=== PATIENT | male | born 1990 | race Hispanic/Latino ===

== ENCOUNTER 2018-02-16 20:06 | Emergency (ER) | payer OTHER ==
[2018-02-16 20:31] LABS: Absolute Lymphocytes (CBC) 1.6 K/uL (0.7-4.9); Absolute Monocytes 0.5 K/uL (0.1-1.3); Absolute Neutrophil 3.6 K/uL (1.8-8.0); Basophils % 0.6 % (0-1.3); Eosinophils % 1.9 % (0-4.4); Hematocrit 40.9 % (39.6-49.0); Lymphocytes % 27.6 % (15.3-44.8); MCH 30.5 pg (27.0-35.0); MCV 88.7 fL (80-100); MPV 9.6 fL (7.6-11.3); Monocytes % 8.2 % (3.3-12.3); RBC Red Blood Cell Count 4.61 M/uL (4.33-5.43)
[2018-02-16 20:35] LABS: Protime INR 1.08
--- NOTE | 2018-02-16 20:39 | RAD REPORT ---
EXAM DESCRIPTION: CT - Head Brain Wo Cont - 02/16/2018 8:31 pm CLINICAL HISTORY: Trauma, possible anoxic event COMPARISON: None. TECHNIQUE: Axial 5 mm thick images of the head were obtained without IV contrast. All CT scans are performed using dose optimization technique as appropriate and may include automated exposure control or mA/KV adjustment according to patient size. FINDINGS: No intracranial hemorrhage is present. No diffuse cerebral edema pattern is identifiable. The frazier matter- white matter differentiation is still preserved. No diffuse sulcal effacement patter n. Ventricles are not effaced. No mass lesion identified. No abnormal extra-axial fluid collections. Mastoid air cells and visualized portions of the paranasal sinuses are clear. No acute bony findings. IMPRESSION: No cerebral edema or other findings of anoxic brain injury. No hemorrhage, mass or acut e intracranial finding.
[2018-02-16 20:40] LABS: BUN Blood Urea Nitrogen 12 mg/dL (6-20); Bicarbonate 27 mEq/L (21-31); Glomerular Filtration Rate > 90 mL/min (=/>90); Glucose Level 94 mg/dL (65-120); Potassium 3.8 mEq/L (3.6-5.0); Sodium Level 141 mEq/L (135-145)
--- NOTE | 2018-02-16 20:42 | RAD REPORT ---
EXAM DESCRIPTION: CT - Neck Angio - 02/16/2018 8:31 pm CLINICAL HISTORY: Trauma, possible vascular injury, possible anoxic event COMPARISON: None. TECHNIQUE: During dynamic enhancement using nonionic IV contrast, axial 2 millimeter thick images of the neck were obtained. Sagittal and coronal reconstruction images were generated and reviewed. FINDINGS: Aortic arch is 3 vessel configuration. No origin stenoses. Imaged portions of the subclavi an arteries are normal. No carotid artery injury is identifiable. No dissection or luminal narrowing seen. Mild tortuosity of the vertebrobasilar vasculature noted without acute injury. Vertebral arteri es are codominant. Normal jugular veins are identifiable. No hematoma, mass or suspicious soft tissue finding. Parotid, submandibular and thyroid glands are normal. No mucosal pharyngeal mass. Epiglottis and soft palate a re unremarkable. No bony abnormality. IMPRESSION: Negative CT angio neck examination. No vascular injury seen. No hematoma, mass, edema or other acute soft tissue finding.
--- NOTE | 2018-02-16 21:06 | ER ---
Nurse's Notes [facility] Name: Trevin Garcia Age: 27 yrs Sex: Male : 1990 Arrival Date: 02/16/2018 Time: 20:09 Bed 20 Private MD: Diagnosis: Contusion of unspecified part of neck;Attempted hanging Presentation: 02/16 20:05 Presenting complaint: EMS states: that pt was found hanging in cell by bed sheet but fc still conscious. Pt states that he just cannot deal with life any more. Denies any previous attempts of suicide. Care prior to arrival: Cervical collar in place. Mechanism of Injury: Hanging by bed sheet Hanging details: unknown time hanging but no LOC. Trauma event details: Injury occurred in the [facility], Injury occurred: Zi unit Injury occurred: February 16, 2018 Injury occurred at: 19:45. 20:05 Acuity: HORTENCIA 2 fc 20:05 Method Of Arrival: EMS: [facility] fc 20:19 Transition of care: patient was not received from another setting of care. Onset of fc symptoms was February 16, 2018 at 19:45. Trauma Activation: Alert Physician: ED Physician; Name: Abran; Notified At: 20:09; Arrived At: 20:05 Physician: General Surgeon; Name: ; Notified At: 20:09; Arrived At: Physician: Radiology; Name: Abimbola Page Victoria; Notified At: 20:09; Arrived At: 20:11 Physician: Respiratory; Name: ; Notified At: 20:09; Arrived At: Physician: Lab; Name: ; Notified At: 20:09; Arrived At: Historical: - Allergies: 20:18 No Known Allergies; fc - Home Meds: 20:18 Unable to obtain [Active]; fc - PMHx: 20:18 Anxiety; Depression; fc - PSHx: 20:18 leg surg; fc - Immunization history: Last tetanus immunization: - up to date. - Social history:: Smoking status: Patient uses tobacco products, denies chronic smoking, but will smoke occasionally, Patient uses street drugs, marijuana, Patient/guardian denies using alcohol. - Family history:: not pertinent. - Hospitalizations: : No recent hospitalization is reported. Screenin:11 Abuse screen: Denies threats or abuse. Denies injuries from another. Nutritional bp screening: No deficits noted. Tuberculosis screening: No symptoms or risk factors identified. Fall Risk None identified. Primary Survey: 20:10 A: Airway: patent. Breathing/Chest: Respiratory pattern: regular, Respiratory effort: bp spontaneous, unlabored, Breath sounds: clear, bilaterally. Chest inspection: symmetrical rise and fall of the chest. Circulation: Cardiac rhythm: sinus rhythm Pulses: palpable right radial artery and left radial artery. Skin color: pink, Skin temperature: warm, dry. Disability Alert. 21:14 Reassessment Airway Airway Patent Breathing/Chest Respiratory pattern Regular bp Respiratory effort Spontaneous Unlabored Circulation Temperature Warm Dry. Secondary Survey: 20:12 HEENT: No deficits noted. Throat: No injury or deformity noted. is clear with gag bp reflex present, NO LIGATURE OSBORN NOTED. CC IN PLACE. Gastrointestinal: No deficits noted. : No signs and/or symptoms were reported regarding the genitourinary system. Musculoskeletal: Circulation, motion, and sensation intact. Range of motion: intact in all extremities. Injury Description: NO APPARENT TRAUMA. Assessment: 20:10 General: Appears in no apparent distress. comfortable, obese, Behavior is calm, bp cooperative, appropriate for age, PT RELEASED FROM PSYCH FACILITY Y/D. FOUND "HANGING" BUT NO NOTABLE LIGATURE OSBORN AND PT HAD NO LOSS OF CONSCIOUSNESS. Pain: Complains of pain in neck. Neuro: Level of Consciousness is awake, alert, obeys commands, listless, Oriented to person, place, time, situation, Appropriate for age. EENT: No deficits noted. Cardiovascular: Patient's skin is warm and dry. Respiratory: Airway is patent Respiratory effort is even, unlabored, Respiratory pattern is regular, symmetrical, Breath sounds are clear bilaterally. GI: No deficits noted. : No deficits noted. Derm: No deficits noted. Musculoskeletal: Circulation, motion, and sensation intact. Range of motion: intact in all extremities. Injury Description: NO APPARENT TRAUMA. 21:03 Reassessment: C COLLAR CLEARED BY . PT REMAINS NEUROVASCULAR INTACT. PO CHALLENGE bp SUCCESSFUL. DISPO PENDING. 21:13 Reassessment: Reassessment: PT D/C TO [facility] IN CUSTODY OF OFFICERS. TRANSPORT PENDING. bp Psych: 20:20 Subjective: Patient's mood is sad, hopeless, Delusions are denied, Hallucinations are fc denied Having thoughts of suicide. Plan for suicide is hanging. Objective: Patient is cooperative, Speech is soft, Affect is appropriate. Interventions: pt in cuffs and has 2 Zi Unit guards at bedside. Suicide Risk Assessment: Sad Person Scale: Sex of patient: Male: Score 1 point. Age of patient: Score 1 point if patient 15-34. Depression: Score 1 point if signs of depression are present. Previous Attempt: Score 0 point if patient has not previously attempted suicide. Substance Abuse: Score 0 point if patient does not abuse alcohol or drugs. Rational Thinking: Score 1 point if patient is lacking rational thinking. Social Support: Score 1 point if social support is lacking and/or unavailable. Organized Plan: Score 1 point if patient had a plan in place. Relationship: Score 1 point if patient is , , , or for a single male Chronic Sickness: Score 0 point if patient does not have a chronic illness, debilitating, or severe disorder. TOTAL POINTS: If total points are 7-10, the proposed clinical action is to hospitalize or commit. Implement suicide precautions. Pt denies substance abuse. 21:15 Safety Checks: PT IN [facility] CUSTODY. Commitment: PT IN [facility] CUSTODY. bp Vital Signs: 20:05 BP 129 / 83; Pulse 95; Resp 18; Temp 99.4(O); Pulse Ox 96% on R/A; Weight 106.59 kg fc (R); Height 5 ft. 10 in. (177.80 cm) (R); Pain 6/10; 21:04 BP 118 / 76; Pulse 71; Resp 16; Pulse Ox 96% ; bp 20:05 Body Mass Index 33.72 (106.59 kg, 177.80 cm) [place] Coma Score: 20:05 Eye Response: spontaneous(4). Verbal Response: oriented(5). Motor Response: obeys commands(6). Total: 15. Trauma Score (Adult): 20:05 Eye Response: spontaneous(1); Verbal Response: oriented(1); Motor Response: obeys commands(2); Systolic BP: > 89 mm Hg(4); Respiratory Rate: 10 to 29 per min(4); Nacho Score: 15; Trauma Score: 12 ED Course: 20:05 Arm band placed on Patient placed in an exam room, on a stretcher, Guards at bedside. fc 20:05 Patient maintains SpO2 saturation greater than 95% on room air. fc 20:09 Patient arrived in ED. em1 20:09 Moody Osullivan MD is Attending Physician. rn 20:09 Harley Do, FRANCIS is Primary Nurse. bp 20:10 Patient maintains SpO2 saturation greater than 95% on room air. bp 20:10 Thermoregulation: warm blanket given to patient. bp 20:11 Patient has correct armband on for positive identification. Bed in low position. Call bp light in reach. Side rails up X2. Adult w/ patient. [facility] PRISONER IN CUSTODY WITH OFFICERS AT B/S AND MANACLES IN PLACE. 20:15 Inserted saline lock: 20 gauge in right antecubital area, using aseptic technique. bp Blood collected. 20:17 Triage completed. fc 20:[address] via stretcher. vm2 20:29 CT Neck Angio Sent. bp 20:30 CT Head Brain wo Cont Sent. bp 20:31 CT Head Brain wo Cont In Process Unspecified. EDMS 20:31 CT Neck Angio In Process Unspecified. EDMS 21:14 IV discontinued, intact, bleeding controlled, No redness/swelling at site. Pressure bp dressing applied. 21:14 No provider procedures requiring assistance completed. bp 21:15 IV discontinued. bp Administered Medications: No medications were administered Intake: 20:10 PO: 0ml; Total: 0ml. bp Output: 20:10 Urine: 0ml; Total: 0ml. bp Outcome: 21:04 Discharge ordered by MD. rn 21:14 Discharged to Law Enforcement bp 21:14 Condition: stable 21:14 Patient's length of stay was not longer than 2 hours. 21:16 Discharge instructions given to patient, police, Instructed on discharge instructions, bp follow up and referral plans. Demonstrated understanding of instructions, follow-up care. 21:16 Patient left the ED. bp Signatures: Dispatcher [employer] EDMS Renea Cedeno, RN RN Moody Osullivan MD MD rn Martinez, Eric em1 Delgado, Traci vm2 Harley Do, FRANCIS RN bp
--- NOTE | 2018-02-16 21:06 | EDPHYS ---
Physician Documentation [facility] Name: Trevin Garcia Age: 27 yrs Sex: Male : 1990 Arrival Date: 02/16/2018 Time: 20:09 Bed 20 Private MD: ED Physician Moody Osullivan HPI: 02/16 20:11 This 27 yrs old Male presents to ER via Unassigned with complaints of HANGING. rn 20:11 The patient or guardian complains of pain. The symptoms are located diffusely. Onset: rn The symptoms/episode began/occurred just prior to arrival. Associated signs and symptoms: The patient has no apparent associated signs or symptoms. Severity of symptoms: At their worst the symptoms were mild, in the emergency department the symptoms have resolved. The patient has not experienced similar symptoms in the past. Per report, found hanging just off of floor in cell, patient reports used sheet in attempt to kill himself, no previous attempts, states depressed and can't deal with this any longer, reports mild neck pain, no trouble speaking/swallowing/breathing. No LOC, was hanging for brief period of time. Found by guards. . Historical: - Allergies: 20:18 No Known Allergies; fc - Home Meds: 20:18 Unable to obtain [Active]; fc - PMHx: 20:18 Anxiety; Depression; fc - PSHx: 20:18 leg surg; fc - Immunization history: Last tetanus immunization: - up to date. - Social history:: Smoking status: Patient uses tobacco products, denies chronic smoking, but will smoke occasionally, Patient uses street drugs, marijuana, Patient/guardian denies using alcohol. - Family history:: not pertinent. - Hospitalizations: : No recent hospitalization is reported. ROS: 20:11 Constitutional: Negative for fever, chills, and weight loss, Eyes: Negative for injury, rn pain, redness, and discharge, Neck: Negative for swelling Cardiovascular: Negative for chest pain, palpitations, and edema, Respiratory: Negative for shortness of breath, cough, wheezing, and pleuritic chest pain, Abdomen/GI: Negative for abdominal pain, nausea, vomiting, diarrhea, and constipation, Back: Negative for injury and pain, MS/Extremity: Negative for injury and deformity, Skin: Negative for injury, rash, and discoloration, Neuro: Negative for headache, weakness, numbness, tingling, and seizure. Exam: 20:11 Constitutional: This is a well developed, well nourished patient who is awake, alert, rn and in no acute distress. Head/Face: Normocephalic, atraumatic. Eyes: Pupils equal round and reactive to light, extra-ocular motions intact. Lids and lashes normal. Conjunctiva and sclera are non-icteric and not injected. Cornea within normal limits. Periorbital areas with no swelling, redness, or edema. Neck: Trachea midline, no masses palpated. In ccollar, no crepitus, no pulsatile masses, normal voice, no ligature gomes, no abrasions/lacerations. Cardiovascular: Regular rate and rhythm with a normal S1 and S2. No gallops, murmurs, or rubs. Normal PMI, no JVD. No pulse deficits. Respiratory: Lungs have equal breath sounds bilaterally, clear to auscultation and percussion. No rales, rhonchi or wheezes noted. No increased work of breathing, no retractions or nasal flaring. Abdomen/GI: Soft, non-tender, with normal bowel sounds. No distension or tympany. No guarding or rebound. No evidence of tenderness throughout. MS/ Extremity: Pulses equal, no cyanosis. Neurovascular intact. Full, normal range of motion. Equal circumference. Neuro: Awake and alert, GCS 15, oriented to person, place, time, and situation. Motor strength 5/5 in all extremities. Sensory grossly intact. Cerebellar exam normal. Vital Signs: 20:05 BP 129 / 83; Pulse 95; Resp 18; Temp 99.4(O); Pulse Ox 96% on R/A; Weight 106.59 kg (R); Height 5 ft. 10 in. (177.80 cm) (R); Pain 6/10; 21:04 BP 118 / 76; Pulse 71; Resp 16; Pulse Ox 96% ; bp 20:05 Body Mass Index 33.72 (106.59 kg, 177.80 cm) Nacho Coma Score: 20:05 Eye Response: spontaneous(4). Verbal Response: oriented(5). Motor Response: obeys commands(6). Total: 15. Trauma Score (Adult): 20:05 Eye Response: spontaneous(1); Verbal Response: oriented(1); Motor Response: obeys fc commands(2); Systolic BP: > 89 mm Hg(4); Respiratory Rate: 10 to 29 per min(4); Orgas Score: 15; Trauma Score: 12 MDM: 20:09 Patient medically screened. rn 21:02 Differential diagnosis: C-Spine Fracture cervical strain, fracture, Neck Contusion rn subluxation, vascular injury, soft tissue injury, airway injury. Data reviewed: vital signs, nurses notes, lab test result(s), radiologic studies, CT scan, and as a result, I will discharge patient. Counseling: I had a detailed discussion with the patient and/or guardian regarding: the historical points, exam findings, and any diagnostic results supporting the discharge/admit diagnosis, lab results, radiology results, the need for outpatient follow up, to return to the emergency department if symptoms worsen or persist or if there are any questions or concerns that arise at home. Special discussion: I discussed with the patient/guardian in detail that at this point there is no indication for admission to the hospital. It is understood, however, that if the symptoms persist or worsen the patient needs to return immediately for re-evaluation. ED course: CT angio and ct head negative, tolerated PO challenge, no hard signs of neck injury, observed, will dc back to half-way, will need close observation and suicide precautions, no need for emergent intervention at this point.. 02/16 20:11 Order name: CBC with Diff; Complete Time: 20:44 rn 02/16 20:11 Order name: Basic Metabolic Panel; Complete Time: 20:44 rn 02/16 20:11 Order name: CT Head Brain wo Cont; Complete Time: 20:44 rn 02/16 20:11 Order name: CT Neck Angio; Complete Time: 20:44 rn 02/16 20:11 Order name: Protime (+inr); Complete Time: 20:44 rn 02/16 20:11 Order name: Ptt, Activated; Complete Time: 20:44 rn 02/16 20:11 Order name: IV Start; Complete Time: 20:29 rn Administered Medications: No medications were administered Disposition: 02/16/18 21:04 Discharged to Home. Impression: Contusion of unspecified part of neck, Attempted hanging. - Condition is Stable. - Discharge Instructions: Soft Tissue Injury of the Neck. - Medication Reconciliation Form, Thank You Letter, Antibiotic Education, Prescription Opioid Use form. - Follow up: Private Physician; When: As needed; Reason: Recheck today's complaints, Re-evaluation by your physician. - Problem is new. - Symptoms have improved. Signatures: Dispatcher [employer] Renea Chin, RN RN Moody Gibbs MD MD rn Peltier, Brian RN RN bp
== END 2018-02-16 21:16 | disposition home or self-care (01) ==
LOC: ER 20:06
DX: S10.93XA Contusion of unspecified part of neck, initial encounter (principal); X83.8XXA Intentional self-harm by other specified means, initial encounter; Y93.89 Activity, other specified; Y92.143 Cell of prison as the place of occurrence of the external cause; Z72.0 Tobacco use; F32.9 Major depressive disorder, single episode, unspecified
CPT/HCPCS: 36415; 70450; 70498; 80048; 85025; 85610; 85730; 99285; Q9967

== ENCOUNTER 2025-01-01 06:57 | Emergency (ER) | payer OTHER ==
[2025-01-01] MEDS ORDERED: METOCLOPRAMIDE 10 MG/2mL INJ ONE (07:24)
[2025-01-01] MEDS ORDERED: NA CHLORIDE 0.9% 500 ML ONE (07:25)
[2025-01-01 07:51] LABS: Absolute Basophils 0.1 K/uL (0-0.5); Absolute Lymphocytes (CBC) 0.8 K/uL (0.7-4.9); Absolute Monocytes 0.7 K/uL (0.1-1.3); Absolute Neutrophil 13.7 K/uL (1.8-8.0); Basophils % 0.5 % (0-1.3); Hematocrit 44.5 % (39.6-49.0); Lymphocytes % 5.2 % (15.3-44.8); MCH 30.5 pg (27.0-35.0); MCHC 33.7 g/dL (32.0-36.0); MCV 90.5 fL (80-100); MPV 8.9 fL (7.6-11.3); Monocytes % 4.3 % (3.3-12.3); Platelets 270 thou/uL (152-406); RBC Red Blood Cell Count 4.91 M/uL (4.33-5.43); Red Cell Distribution Width 12.8 % (12.1-15.2)
[2025-01-01 08:06] LABS: Troponin High Sensitivity 16.3 pg/mL (<58.9)
[2025-01-01 08:13] LABS: PT Prothrombin Time 12.5 SECONDS (9.4-12.5); Protime INR 1.19
--- NOTE | 2025-01-01 08:24 | RAD REPORT ---
Procedure: Chest Single View HISTORY: Cough COMPARISON: none FINDINGS: The lungs appear clear of acute infiltrate. No significant pleural effusion noted. The heart is normal size. IMPRESSION: No acute abnormality is displayed.
[2025-01-01 08:43] LABS: SARS-CoV-2 Antigen CONTROL BLUE LINE VIS/BG OK; SARS-CoV-2 Antigen Rapid Res Negative (Negative)
[2025-01-01] MEDS ORDERED: KETOROLAC 30 MG/ML INJ ONE (10:03)
--- NOTE | 2025-01-01 10:13 | RAD REPORT ---
EXAMINATION: CTA CHEST PE CLINICAL INDICATION: Chest pain TECHNIQUE: 100 cc 370 Isovue administered intravenously. This examination was performed according to an angiographic protocol with 3D post-processing. This involves 3D reconstructions, MIPs, volume rendered images and/or shaded surface rendering. One or more of the following dose reduction techniqu es were used: Automated exposure control, adjustment of the mA and/or kV according to patient size, and/or iterative reconstruction. Unless otherwise specified, incidental findings do not require dedic ated imaging follow-up. [id number]. COMPARISON: No prior exam. FINDINGS: Suboptimal opacification pulmonary arteries. No gross central pulmonary embolus seen. An aortic aneurysm not noted. No pleural effusion. No pericardial effusion. Elevation right hemidiaphragm. A few areas of subsegmental atelectasis right lung base. IMPRESSION: Suboptimal opacification pulmonary arteries. No gross central pulmonary embolus seen.
--- NOTE | 2025-01-01 10:16 | ER ---
Nurse's Notes [facility] Name: Trevin Garcia Age: 34 yrs Sex: Male : 1990 Arrival Date: 01/01/2025 Time: 06:57 Bed 17 Private MD: Diagnosis: Chest pain, unspecified Presentation: 01/01 07:00 Chief complaint: EMS states: "toned out for CP that started yesterday and got worse mb9 this morning. Pt N/V [employer]. 324 of ASA and 3 Nitro given.". Coronavirus screen: Vaccine status: Patient reports receiving the 2nd dose of the covid vaccine. Ebola Screen: No symptoms or risks identified at this time. Initial Sepsis Screen: Does the patient meet any 2 criteria? No. Patient's initial sepsis screen is negative. Does the patient have a suspected source of infection? No. Patient's initial sepsis screen is negative. Risk Assessment: Do you want to hurt yourself or someone else? Patient reports no desire to harm self or others. 07:00 Onset of symptoms was January 01, 2025. mb9 07:16 Acuity: HORTENCIA 2 mb9 07:16 Method Of Arrival: EMS: [facility] mb9 Triage Assessment: 07:20 General: Appears in no apparent distress. Behavior is calm, cooperative. Pain: mb9 Complains of pain in chest Pain radiates to abdomen Pain currently is 6 out of 10 on a pain scale. Quality of pain is described as aching, Pain began gradually. EENT: No signs and/or symptoms were reported regarding the EENT system. Neuro: Garcia Agitation-Sedation Scale (RASS): 0 - Alert and Calm Level of Consciousness is awake, alert, obeys commands, Oriented to person, place, time, situation, Appropriate for age. Cardiovascular: Reports chest pain, Heart tones S1 S2 present Patient's skin is warm and dry. Respiratory: Airway is patent Respiratory effort is even, unlabored, Respiratory pattern is regular, symmetrical. GI: Abdomen is round non-distended. : No signs and/or symptoms were reported regarding the genitourinary system. Derm: Skin is pink, warm \\T\\ dry. Musculoskeletal: Range of motion: intact in all extremities. Historical: - Allergies: 07:19 No Known Allergies; mb9 - Home Meds: 07:19 Hydrochlorothiazide Oral [Active]; mb9 - PMHx: 07:19 Anxiety; Depression; Hypertensive disorder; mb9 - PSHx: 07:19 None; mb9 - Immunization history:: Adult Immunizations up to date. - Infectious Disease History:: Denies. - Social history:: Smoking status: Patient denies any tobacco usage or history of. Screenin:21 [facility] ED Fall Risk Assessment (Adult) History of falling in the last 3 months, mb9 including since admission No falls in past 3 months (0 pts) Confusion or Disorientation No (0 pts) Intoxicated or Sedated No (0 pts) Impaired Gait No (0 pts) Mobility Assist Device Used No (0 pt) Altered Elimination No (0 pt) Score/Fall Risk Level 0 - 2 = Low Risk Oriented to surroundings, Maintained a safe environment, Educated pt \\T\\ family on fall prevention, incl call for assistance when getting out of bed. Abuse screen: Denies threats or abuse. Nutritional screening: No deficits noted. Tuberculosis screening: No symptoms or risk factors identified. Assessment: 07:21 Reassessment: see triage assessment. mb9 08:30 Reassessment: Patient and/or family updated on plan of care and expected duration. Pain mb9 level reassessed. Patient is alert, oriented x 3, equal unlabored respirations, skin warm/dry/pink. Patient states feeling better. Patient states symptoms have improved. 10:35 Reassessment: No changes from previously documented assessment. Patient and/or family mb9 updated on plan of care and expected duration. Pain level reassessed. Patient is alert, oriented x 3, equal unlabored respirations, skin warm/dry/pink. Vital Signs: 07:16 BP 128 / 75; Pulse 98; Resp 18; Temp 98; Pulse Ox 98% on R/A; Weight 122.92 kg; Height mb9 5 ft. 9 in. ; Pain 6/10; 08:15 BP 150 / 94; Pulse 92; Resp 18; Pulse Ox 99% ; mb9 10:35 BP 138 / 83; Pulse 84; Resp 18; Pulse Ox 100% on R/A; mb9 07:16 Body Mass Index 40.02 (122.92 kg, 175.26 cm) mb9 07:16 Pain Scale: Adult mb9 ED Course: 06:59 Patient arrived in ED. vc1 07:01 Shawn Kumar MD is Attending Physician. ec2 07:05 EKG done, by ED staff, reviewed by Shawn Kumar MD. mb9 07:16 Viv Brown, FRANCIS is Primary Nurse. mb9 07:16 Initial lab(s) drawn, by me, sent to lab. Inserted saline lock: 20 gauge in right mb9 antecubital area, using aseptic technique. Blood collected. Flushed with 10 mL NS. 07:19 Triage completed. mb9 07:20 Arm band placed on. mb9 07:22 Bed in low position. Call light in reach. Side rails up X 1. Provided Education on: mb9 press call light if needing anything. Client placed on continuous cardiac and pulse oximetry monitoring. NIBP monitoring applied. monitor car operator on. 07:33 SARS RAPID Sent. mb9 07:33 Influenza Screen (a \\T\\ B) Sent. mb9 07:34 No provider procedures requiring assistance completed. mb9 08:18 XRAY Chest (1 view) In Process Unspecified. EDMS 09:58 CT Chest For PE Angio In Process Unspecified. EDMS 10:35 IV discontinued, intact, bleeding controlled, No redness/swelling at site. Pressure mb9 dressing applied. Administered Medications: 07:33 Drug: NS 0.9% IV 500 ml 500 ml IV at 1 bolus once; to be given as a bolus over 30 mb9 minutes Volume: 500 ml; Route: IV; Rate: 1 bolus; Site: right antecubital; 09:48 Follow up: Response: No adverse reaction; IV Status: Completed infusion mb9 07:33 Drug: metoCLOPramide IVP 10 mg IVP once; over 1 to 2 minutes Route: IVP; Site: right mb9 antecubital; 09:48 Follow up: Response: No adverse reaction mb9 10:10 Drug: Ketorolac IVP 15 mg IVP once Route: IVP; Site: right antecubital; mb9 10:35 Follow up: Response: No adverse reaction mb9 Medication: 07:34 VIS not applicable for this client. mb9 Outcome: 10:16 Discharge ordered by . ec2 10:36 Discharged to home ambulatory, mb9 10:36 Condition: stable 10:36 Discharge instructions given to patient, Instructed on discharge instructions, follow up and referral plans. Demonstrated understanding of instructions, follow-up care, 10:36 Patient left the ED. mb9 Signatures: Dispatcher [employer] Leah Morales RN RN vc1 Viv Brown RN RN mb9 Shawn Kumar MD MD ec2
--- NOTE | 2025-01-01 10:16 | EDPHYS ---
Physician Documentation [facility] Name: Trevin Garcia Age: 34 yrs Sex: Male : 1990 Arrival Date: 01/01/2025 Time: 06:57 Bed 17 Private MD: ED Physician Shawn Kumar HPI: 01/01 07:19 This 34 yrs old Male presents to ER via EMS with complaints of chest pain. ec2 07:19 Patient arrives today d/t concern for chest pain. reports chest pain started several ec2 days ago, no specific alleviating or exacerbating factors, reports pain is in the left chest, worse with pressing on the area, also reports some nausea as well as headache. EMS reports that noticed hypertensive blood pressures. Reports a history of hypertension, does not take medications.. Historical: - Allergies: 07:19 No Known Allergies; mb9 - Home Meds: 07:19 Hydrochlorothiazide Oral [Active]; mb9 - PMHx: 07:19 Anxiety; Depression; Hypertensive disorder; mb9 - PSHx: 07:19 None; mb9 - Immunization history:: Adult Immunizations up to date. - Infectious Disease History:: Denies. - Social history:: Smoking status: Patient denies any tobacco usage or history of. ROS: 07:20 Constitutional: as per hpi ec2 Exam: 07:20 Constitutional: GEN: NAD Head: atraumatic Eyes: EOMI Ears: External ears are ec2 normal. CV: regular rate LUNGS: no respiratory distress ABD: non-distended SKIN: no evidence of rashes MSK: no evidence of trauma, reproducible chest wall TTP. Neuro: Cranial nerves II through XII intact, strength intact upper extremities. Vital Signs: 07:16 BP 128 / 75; Pulse 98; Resp 18; Temp 98; Pulse Ox 98% on R/A; Weight 122.92 kg; Height mb9 5 ft. 9 in. ; Pain 6/10; 08:15 BP 150 / 94; Pulse 92; Resp 18; Pulse Ox 99% ; mb9 10:35 BP 138 / 83; Pulse 84; Resp 18; Pulse Ox 100% on R/A; mb9 07:16 Body Mass Index 40.02 (122.92 kg, 175.26 cm) mb9 07:16 Pain Scale: Adult mb9 MDM: 07:01 Medical Screening Exam initiated ec2 07:20 Data reviewed: vital signs, nurses notes. ED course: Patient arrives today for chest ec2 pain. Examination is revealing for reproducible chest wall TTP. EKG obtained, independently reviewed and interpreted by me, shows normal sinus rhythm, rate of 96, no acute ST segment elevations, intervals are nonactionable. Will obtain lab work, chest x-ray and give the patient medications for his headaches. Differential considered include processes such as ACS, PE, costochondritis.. 08:26 ED course: Metabolic profile reassuring, CBC shows slight leukocytosis. BNP within ec2 normal ranges. Troponin within normal ranges. Chest x-ray shows no acute intrathoracic process. Pending dimer as well as viral swabs. No evidence of pneumonia on chest x-ray, will forego antibiotics or septic workup, patient without any abdominal pain to indicate intra-abdominal infection.. 10:15 ED course: CT imaging with no gross abnormality noted, no PE identified. Suspect likely ec2 MSK pain given the reproducibility. Will discharge home. Return precautions given.. 01/01 07:14 Order name: Basic Metabolic Panel; Complete Time: 08:25 ec2 01/01 07:14 Order name: CBC with Diff ec2 01/01 07:14 Order name: NT PRO-BNP; Complete Time: 08:25 ec2 01/01 07:14 Order name: PT-INR; Complete Time: 08:25 ec2 01/01 07:14 Order name: Troponin HS; Complete Time: 08:25 ec2 01/01 07:14 Order name: Influenza Screen (a \T\ B); Complete Time: 10:04 01/01 07:14 Order name: SARS RAPID; Complete Time: 10:04 ec01/01 07:14 Order name: XRAY Chest (1 view); Complete Time: 08:25 ec2 01/01 09:27 Order name: CT Chest For PE Angio; Complete Time: 10:15 ec01/01 07:14 Order name: EKG; Complete Time: 07:15 ec01/01 07:14 Order name: Cardiac monitoring; Complete Time: 07:22 ec2 01/01 07:14 Order name: EKG - Nurse/Tech; Complete Time: 07:22 ec01/01 07:14 Order name: IV Saline Lock; Complete Time: 07:22 ec2 01/01 07:14 Order name: Labs collected and sent; Complete Time: ec2 01/01 07:14 Order name: O2 Per Protocol; Complete Time: ec2 01/01 07:14 Order name: O2 Sat Monitoring; Complete Time: ec2 Administered Medications: 07:33 Drug: NS 0.9% IV 500 ml 500 ml IV at 1 bolus once; to be given as a bolus over 30 mb9 minutes Volume: 500 ml; Route: IV; Rate: 1 bolus; Site: right antecubital; 09:48 Follow up: Response: No adverse reaction; IV Status: Completed infusion mb9 07:33 Drug: metoCLOPramide IVP 10 mg IVP once; over 1 to 2 minutes Route: IVP; Site: right mb9 antecubital; 09:48 Follow up: Response: No adverse reaction mb9 10:10 Drug: Ketorolac IVP 15 mg IVP once Route: IVP; Site: right antecubital; mb9 10:35 Follow up: Response: No adverse reaction mb9 Disposition Summary: 01/01/25 10:16 Discharge Ordered Notes: Location: Home ec2 Condition: Stable ec2 Diagnosis - Chest pain, unspecified ec2 Followup: ec2 - With: Private Physician - When: - Reason: Re-evaluation by your physician Discharge Instructions: - Discharge Summary Sheet ec2 - Nonspecific Chest Pain, Adult, [id number] ec2 Forms: - Medication Reconciliation Form ec2 - Antibiotic Education ec2 - Prescription Opioid Use ec2 - Patient Portal Instructions ec2 - Leadership Thank You Letter ec2 Signatures: Dispatcher [employer] Viv Ruiz RN RN mb9 Shawn Kumar MD MD ec2 Corrections: (The following items were deleted from the chart) 07:51 07:15 D-DIMER+COAG.LAB.BRZ ordered. EDMS EDMS 10:01 07:52 D-Dimer ordered. EDMS EDMS
[2025-01-01 10:40] LABS: Blood Morphology Comment NOT SEEN (NOT SEEN); Platelet Estimate ADEQ; White Blood Cell Scan OK (OK)
[2025-01-01 11:08] VITALS: TEMP 98
[2025-01-01 11:15] VITALS: BP 138/83; O2SAT 100
== END 2025-01-01 10:36 | disposition home or self-care (01) ==
LOC: ER 06:57
DX: R07.9 Chest pain, unspecified (principal); I10 Essential (primary) hypertension; F41.9 Anxiety disorder, unspecified; Z11.52 Encounter for screening for COVID-19
CPT/HCPCS: 96361; 93005; 85025; 80048; 36415; 85610; 84484; 83880; 87804 ×2; 71275; 71045; 96375; 96374; 99285; 87811; Q9967; J2765; J7040